=== PATIENT | male | born 1955 | race Caucasian/White ===

== ENCOUNTER 2019-05-15 08:19 | Day surgery (SDC) | payer OTHER ==
[2019-05-15] MEDS ORDERED: Propofol 200 MG/20 ML SDV IV ONE (08:20)
[2019-05-15] MEDS ORDERED: Lidocaine 1% PF 2 ML SDV INJECT ONE (08:20)
[2019-05-15] MEDS ORDERED: Lactated Ringers 1,000 ML IV SCH (09:00)
[2019-05-15] MEDS ORDERED: Sodium Chloride 0.9% 10 ML Syringe FLUSH PRN (09:00)
--- NOTE | 2019-05-15 10:20 | PCM.OPNOTE ---
- General Post-Op/Procedure Note Date of Surgery/Procedure: 05/15/19 Operative Procedure(s): c scope Findings: nl exam Pre Op Diagnosis: abnl ct scan of the cecum Post-Op Diagnosis: nl c scope Anesthesia Technique: MAC Primary Surgeon: Benji Haddad Anesthesia Provider: Hollis Snow Pathology: none Complications: None Condition: Good Free Text/Narrative:: see dictation
--- NOTE | 2019-05-15 14:31 | OR ---
DATE OF OPERATION: 05/15/2019 SURGEON: Benji Haddad MD PROCEDURE PERFORMED: Colonoscopy. PREOPERATIVE DIAGNOSIS: Abnormal CT scan of the colon. POSTOPERATIVE DIAGNOSIS: Normal colonoscopy. INDICATIONS FOR PROCEDURE: This is a 64-year-old white male, who during a recent hospitalization underwent a CT scan of the abdomen. There was a question of whether or not he had a cecal mass involving the base of the appendix. He was offered and accepted a colonoscopy as part of a diagnostic workup for this condition. DESCRIPTION OF OPERATION: After an excellent IV sedation was administered, digital rectal exam was performed. No marked abnormality was noted. Flexible colonoscope was inserted and advanced without difficulty to the cecum. The prep was excellent. The following findings were noted: The cecum was completely unremarkable with a normal-appearing appendiceal base. Photos were taken. The remainder of the ascending colon was unremarkable. Transverse colon was unremarkable. Descending colon was unremarkable. Sigmoid and rectum were unremarkable. The patient tolerated the procedure well, was taken to recovery room in good condition. We will be repeating a CT scan in a couple of months with oral contrast to re-evaluate this area. At this point, I see nothing to further warrant any other intervention at this time. /[id number] /MODL
== END 2019-05-15 11:01 | disposition home or self-care (01) ==
LOC: FB.SDS 08:19
PROVIDERS: ATTEND Surgery
DX: R93.3 Abnormal findings on diagnostic imaging of other parts of digestive tract (principal); I10 Essential (primary) hypertension; E78.2 Mixed hyperlipidemia; J44.9 Chronic obstructive pulmonary disease, unspecified; F32.9 Major depressive disorder, single episode, unspecified; F17.200 Nicotine dependence, unspecified, uncomplicated; Z87.19 Personal history of other diseases of the digestive system; Z98.890 Other specified postprocedural states; Z88.0 Allergy status to penicillin; Z79.899 Other long term (current) drug therapy
CPT/HCPCS: 45378; J2001; J2704; J7120

== ENCOUNTER 2022-06-30 06:19 | Day surgery (SDC) | payer OTHER, MEDICARE ==
[2022-06-30] MEDS ORDERED: Midazolam 1 MG/ML 2 ML SDV IV ONE (06:20)
[2022-06-30] MEDS ORDERED: Lidocaine 2% 5 ML SDV INJECT ONE (06:20)
[2022-06-30] MEDS ORDERED: Labetalol 100 MG/20 ML MDV IV ONE (06:20)
[2022-06-30] MEDS ORDERED: Lactated Ringers 1,000 ML IV PRN (06:45)
[2022-06-30] MEDS ORDERED: Sodium Chloride 0.9% 10 ML Syringe FLUSH PRN (06:45)
[2022-06-30] MEDS ORDERED: acetaZOLAMIDE 500 MG Cap.ER PO ONE (08:15)
[2022-06-30] MEDS ORDERED: fentaNYL 100 MCG/2 ML SDV IV ONE (14:32)
== END 2022-06-30 09:23 | disposition home or self-care (01) ==
LOC: FB.SDS 06:19
PROVIDERS: ATTEND Ophthalmology
DX: H25.9 Unspecified age-related cataract (principal); J44.9 Chronic obstructive pulmonary disease, unspecified; F32.A Depression, unspecified; I10 Essential (primary) hypertension; F17.210 Nicotine dependence, cigarettes, uncomplicated; Z88.1 Allergy status to other antibiotic agents; Z79.899 Other long term (current) drug therapy
CPT/HCPCS: 00142; A9270-GY; J2250; J3010; J3490; V2632

== ENCOUNTER 2022-07-14 06:44 | Day surgery (SDC) | payer OTHER, MEDICARE ==
[~2022-07-14 06:44] MED LIST: Lactated Ringers 1,000 ML IV PRN; Sodium Chloride 0.9% 10 ML Syringe FLUSH PRN
[2022-07-14] MEDS ORDERED: Midazolam 1 MG/ML 2 ML SDV IV ONE (06:45)
[2022-07-14] MEDS ORDERED: fentaNYL 100 MCG/2 ML SDV IV ONE (06:45)
[2022-07-14] MEDS ORDERED: Lidocaine 2% 5 ML SDV IV ONE (06:45)
[2022-07-14] MEDS ORDERED: acetaZOLAMIDE 500 MG Cap.ER PO ONE (08:30)
== END 2022-07-14 08:57 | disposition home or self-care (01) ==
LOC: FB.SDS 06:44
PROVIDERS: ATTEND Ophthalmology
DX: H25.9 Unspecified age-related cataract (principal); J44.9 Chronic obstructive pulmonary disease, unspecified; E78.5 Hyperlipidemia, unspecified; I10 Essential (primary) hypertension; F32.A Depression, unspecified; F17.210 Nicotine dependence, cigarettes, uncomplicated; Z88.1 Allergy status to other antibiotic agents; Z88.8 Allergy status to other drugs, medicaments and biological substances; Z79.899 Other long term (current) drug therapy
CPT/HCPCS: 00142; A9270-GY; J2250; J3010; J3490; V2632

== ENCOUNTER 2023-04-06 06:54 | Day surgery (SDC) | payer OTHER, MEDICARE ==
[2023-04-06] MEDS ORDERED: Lidocaine 2% 5 ML SDV IV ONE (06:55)
[2023-04-06] MEDS ORDERED: Propofol 200 MG/20 ML SDV IV ONE (06:55)
[2023-04-06] MEDS ORDERED: Lactated Ringers 1,000 ML IV SCH (07:00)
[2023-04-06] MEDS ORDERED: Sodium Chloride 0.9% 10 ML Syringe FLUSH PRN (07:00)
[2023-04-06] MEDS ORDERED: Simethicone Drops 40 MG/0.6 ML 30 ML Bottle ONE (08:27)
== END 2023-04-06 09:42 | disposition home or self-care (01) ==
LOC: FB.SDS 06:54
PROVIDERS: ATTEND Surgery
DX: K57.30 Diverticulosis of large intestine without perforation or abscess without bleeding (principal); K62.5 Hemorrhage of anus and rectum; I10 Essential (primary) hypertension; J44.9 Chronic obstructive pulmonary disease, unspecified; F17.210 Nicotine dependence, cigarettes, uncomplicated; J43.8 Other emphysema; Z79.51 Long term (current) use of inhaled steroids; Z79.899 Other long term (current) drug therapy; Z88.8 Allergy status to other drugs, medicaments and biological substances; Z88.1 Allergy status to other antibiotic agents
CPT/HCPCS: 00811; A9270-GY; J2704; J7120